=== PATIENT | male | born 1985 | race Two or more races ===

== ENCOUNTER 2021-01-02 23:41 | Emergency (ER) | payer SELFPAY ==
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
[2021-01-03] MEDS ORDERED: IBUPROFEN 200 MG TAB PO ONE (02:13)
[2021-01-03 11:05] VITALS: O2SAT 100
[2021-01-03 11:06] VITALS: BP 148/99; TEMP 98
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
== END 2021-01-03 02:31 | disposition home or self-care (01) ==
LOC: ER 23:41
DX: S29.012A Strain of muscle and tendon of back wall of thorax, initial encounter (principal); V89.2XXA Person injured in unspecified motor-vehicle accident, traffic, initial encounter; F17.210 Nicotine dependence, cigarettes, uncomplicated
CPT/HCPCS: 70450; 71250; 72125; 99283